=== PATIENT | male | born 1955 | race Caucasian/White ===

== ENCOUNTER → 2018-07-17 | Outpatient (CLI) | payer OTHER ==
[~2018-07-17] MED LIST: Augmentin 875-1 EACH PO; BISA5EC PO; LINZESS290 MCG PO; NAPR500 PO; ROXICODONE5 MG PO; Tylenol325 MG PO; XARELTO15 MG PO
== END | disposition home or self-care (01) ==
LOC: LAB SHORT 12:34 → LAB 12:34
DX: B35.1 Tinea unguium (principal); L60.2 Onychogryphosis
CPT/HCPCS: 88305; 88312

== ENCOUNTER → 2019-06-11 | Outpatient (CLI) | payer OTHER ==
[~2019-06-11] MED LIST changes: +CYCL10 PO; +DIAZ10 PO; +Percocet 10-321 EACH PO; +SIMV10 PO; +TRAZ100 PO; +Zofran4 MG PO
== END | disposition home or self-care (01) ==
LOC: LAB SHORT 11:50 → PLD 11:50
DX: D48.5 Neoplasm of uncertain behavior of skin (principal)
CPT/HCPCS: 88305

== ENCOUNTER 2019-11-14 01:09 | Emergency (ER) | payer OTHER ==
[~2019-11-14] VITALS: Ht 182.9 cm; Wt 97.5 kg
[2019-11-14] MEDS ORDERED: Cymbalta20 MG PO (01:38)
[2019-11-14] MEDS ORDERED: HYDROCODON-ACE1 EAC3 PO (01:39)
[2019-11-14 04:58] LABS: Body Fluid Crystals NEG (NEGATIVE)
[2019-11-14 05:12] LABS: Appearance, Synovial Fluid Bloody (Clear); Color, Synovial Fluid Red (None-P Yel); RBC Count, Synovial Fluid 4350000 /mm3 (0-0); WBC Count, Synovial Fluid 1585 /mm3 (0-180)
[2019-11-14 05:32] LABS: Eos, Synovial Fluid 2 % (0-2); Lymphs, Synovial Fluid 12 % (0-15); Monocytes/Macrophages, Synovia 10 % (0-65); Neutrophils, Synovial Fluid 76 % (0-24)
== END 2019-11-14 04:43 | disposition home or self-care (01) ==
LOC: ER 01:09
PROVIDERS: Emergency Medicine
DX: M25.061 Hemarthrosis, right knee (principal); Z79.01 Long term (current) use of anticoagulants; Z86.711 Personal history of pulmonary embolism; Z86.718 Personal history of other venous thrombosis and embolism; Z87.891 Personal history of nicotine dependence; Z98.890 Other specified postprocedural states
CPT/HCPCS: 20610; 36415; 76882; 87070; 87075; 87205; 89051; 89060; 93971; 96374-59; 96375-59; 96376-59; 99284-25; A9270; J1170; J1885; J2405; J7030

== ENCOUNTER → 2020-06-09 | Outpatient (CLI) | payer OTHER ==
[~2020-06-09] MED LIST changes: +Cymbalta20 MG PO; +HYDROCODON-ACE1 EAC3 PO
== END | disposition home or self-care (01) ==
LOC: LAB SHORT 08:38 → PLD 08:38
DX: D48.5 Neoplasm of uncertain behavior of skin (principal)
CPT/HCPCS: 88305

== ENCOUNTER → 2021-05-25 | Outpatient (CLI) | payer OTHER | END | disposition home or self-care (01) | LOC: LAB SHORT 11:12 → LAB 11:12 | DX: C44.612 Basal cell carcinoma of skin of right upper limb, including shoulder (principal) | CPT/HCPCS: 88305 ==

== ENCOUNTER → 2021-07-01 | Outpatient (CLI) | payer OTHER | END | disposition home or self-care (01) | LOC: LAB SHORT 08:04 | DX: C44.612 Basal cell carcinoma of skin of right upper limb, including shoulder (principal) | CPT/HCPCS: 88305 ==

== ENCOUNTER 2022-05-18 06:16 | Day surgery (SDC) | payer OTHER ==
[~2022-05-18] VITALS: Ht 180.3 cm; Wt 102.2 kg
[~2022-05-18 06:16] MED LIST changes: +CELE200 PO; +PREG100
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
--- NOTE | 2022-05-18 09:10 | NUR ---
0835 PATIENT FEELS TOUCH TO RIGHT THUMB AND INDEX FINGER, BUT NOT MIDDLE, FOUTH OR PINKY FINGER. CAP REFILL LESS THAN 3 SECONDS TO FINGERS X5 TO RIGHT HAND, WARM AND PINK. AYSHA WRAP DRSSING INTACT. ELEVATED ON PILLOW FOR COMFORT. VSS. DENIES PAIN TO SURGERY SITE, BUT C/O HEADACHE. DENIES NAUSEA. TOLERATING SIPS OF WATER. NO OTHER C/O. Discharge instructions reviewed with patient. Patient verbalizes understanding. Copy given to patient to take home. Patient identifies his as tranportation home. at bedside. Patient encouraged to call Dr. Kelly' office when home, to confirm follow-up appointment. Prescription given to patient to fill.
--- NOTE | 2022-05-18 09:14 | NUR ---
0900- NO CHANGE TO RIGHT HAND SURGERY SITE. PATIENT STATES HEADACHE DOWN TO 5/10 PAIN AND STATES HE IS TOLERATING. CONTINUES TO DENY PAIN TO SURGERY SITE.
== END 2022-05-18 09:06 | disposition home or self-care (01) ==
LOC: ORSCMMR 06:16
PROVIDERS: Orthopaedic Surgery
PROC: 0LN70ZZ Release Right Hand Tendon, Open Approach (ICD-10-PCS; principal; 2022-05-18 07:30)
DX: M65.341 Trigger finger, right ring finger (principal); K21.9 Gastro-esophageal reflux disease without esophagitis; E03.9 Hypothyroidism, unspecified; Z79.899 Other long term (current) drug therapy
CPT/HCPCS: J0690; J2250; J2704; J3010; J7120

== ENCOUNTER 2022-08-10 10:50 | Emergency (ER) | payer OTHER ==
[~2022-08-10] VITALS: Ht 182.9 cm; Wt 101.6 kg
== END 2022-08-10 13:00 | disposition home or self-care (01) ==
LOC: ER 10:50
DX: J93.83 Other pneumothorax (principal); Z86.718 Personal history of other venous thrombosis and embolism; Z86.711 Personal history of pulmonary embolism; Z79.01 Long term (current) use of anticoagulants; Z79.899 Other long term (current) drug therapy
CPT/HCPCS: 93005; 93010; 99284-25

== ENCOUNTER → 2022-08-10 | Outpatient (CLI) | payer OTHER ==
[2022-08-10 08:13] LABS: BASOPHILS ABSOLUTE AUTO 0.03 K/mm3 (0.00-0.23); BASOPHILS PERCENT AUTO 0 % (0-2); EOSINOPHILS ABSOLUTE AUTO 0.21 K/mm3 (0.00-0.68); EOSINOPHILS PERCENT AUTO 3 % (0-6); Hemoglobin 18.1 g/dL (13.5-17.5); IMMATURE GRAN ABSOLUTE AUTO 0.01 K/mm3 (0.00-0.10); IMMATURE GRAN PERCENT AUTO 0 % (0-1); LYMPHOCYTES PERCENT AUTO 28 % (21-46); MONOCYTES PERCENT AUTO 10 % (4-13); Mean Corpuscular HGB 28.5 pg (26.0-34.0); Mean Corpuscular HGB Conc 33.5 g/dL (31.5-36.5); Mean Corpuscular Volume 85 fL (80-100); Mean Platelet Volume 10.2 fL (9.1-12.4); NEUTROPHILS ABSOLUTE AUTO 3.88 K/mm3 (1.96-9.15); NEUTROPHILS PERCENT AUTO 58 % (41-73); Platelet Count 208 K/mm3 (150-400); RDW Coefficient Variation 14.3 % (11.7-14.2); RDW Standard Deviation 43.4 fL (35.1-46.3); Red Blood Cell Count 6.34 M/mm3 (4.30-5.90); White Blood Cell Count 6.73 K/mm3 (4.00-11.30)
[2022-08-10 08:26] LABS: Albumin, Blood 4.3 g/dL (3.4-5.0); Albumin/Globulin Ratio 1.2 (0.8-1.8); Bilirubin, Total 0.6 mg/dL (0.1-1.0); Bun/Creatinine Ratio 31.9 (12.0-20.0); Calcium, Blood 9.2 mg/dL (8.5-10.1); Creatinine, Blood 0.69 mg/dL (0.60-1.20); Globulin, Blood 3.6 g/dL (2.2-4.0); Potassium, Blood 4.1 mmol/L (3.5-5.5); Total Protein, Blood 7.9 g/dL (6.4-8.2)
== END | disposition home or self-care (01) ==
LOC: LAB SHORT 08:09 → LAB 08:09
PROVIDERS: Physician Assistant
DX: R07.9 Chest pain, unspecified (principal)
CPT/HCPCS: 80053; 84484; 85025; 85379

== ENCOUNTER → 2022-10-11 | Outpatient (CLI) | payer OTHER ==
[2022-10-11 12:13] LABS: BASOPHILS ABSOLUTE AUTO 0.03 K/mm3 (0.00-0.23); BASOPHILS PERCENT AUTO 1 % (0-2); EOSINOPHILS PERCENT AUTO 2 % (0-6); Hematocrit 52.4 % (37.0-53.0); Hemoglobin 17.7 g/dL (13.5-17.5); IMMATURE GRAN ABSOLUTE AUTO 0.01 K/mm3 (0.00-0.10); IMMATURE GRAN PERCENT AUTO 0 % (0-1); LYMPHOCYTES ABSOLUTE AUTO 1.65 K/mm3 (0.84-5.20); LYMPHOCYTES PERCENT AUTO 30 % (21-46); MONOCYTES ABSOLUTE AUTO 0.47 K/mm3 (0.16-1.47); MONOCYTES PERCENT AUTO 9 % (4-13); Mean Corpuscular HGB 28.5 pg (26.0-34.0); Mean Corpuscular HGB Conc 33.8 g/dL (31.5-36.5); Mean Corpuscular Volume 84 fL (80-100); Mean Platelet Volume 10.6 fL (9.1-12.4); NEUTROPHILS ABSOLUTE AUTO 3.17 K/mm3 (1.96-9.15); NEUTROPHILS PERCENT AUTO 58 % (41-73); Platelet Count 208 K/mm3 (150-400); RDW Coefficient Variation 14.9 % (11.7-14.2); RDW Standard Deviation 43.6 fL (35.1-46.3); Red Blood Cell Count 6.22 M/mm3 (4.30-5.90); White Blood Cell Count 5.43 K/mm3 (4.00-11.30)
== END | disposition home or self-care (01) ==
LOC: LAB SHORT 12:10 → LAB 12:10
PROVIDERS: Family Medicine
DX: D75.0 Familial erythrocytosis (principal)
CPT/HCPCS: 85025

== ENCOUNTER → 2025-07-03 | Outpatient (CLI) | payer MEDICARE, OTHER ==
[~2025-07-03] MED LIST changes: +FAMO10; +FINA5 PO; +OMEP20ER PO; +TAMSULOSIN HCL0.4 M1 PO; +TRAZ50 PO
== END | disposition home or self-care (01) ==
LOC: LAB SHORT 16:01 → LAB 16:01
DX: L08.0 Pyoderma (principal)
CPT/HCPCS: 87070; 87077; 87186; 87205

== ENCOUNTER 2025-09-13 13:52 | Emergency (ER) | payer OTHER, MEDICARE ==
[~2025-09-13] VITALS: Ht 182.9 cm; Wt 83.9 kg
[2025-09-13] MEDS ORDERED: Ondansetron HCl 2 MG / ML 2ML Vial ONE (14:07)
[2025-09-13] MEDS ORDERED: Ondansetron HCl 2 MG / ML 2ML Vial IV ONE (14:10)
[2025-09-13] MEDS ORDERED: Morphine Sulfate 4 MG/1 ML Injection IV ONE (14:10)
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
[2025-09-13 14:25] LABS: Hematocrit 36.6 % (37.0-53.0); Hemoglobin 12.4 g/dL (13.5-17.5); Mean Corpuscular HGB Conc 33.9 g/dL (31.5-36.5); Mean Corpuscular Volume 97 fL (80-100); NRBC ABSOLUTE 0.00 K/mm3 (0.00-0.02); NRBC Auto 0.0 /100 WBC (0.0-0.2); Platelet Count 249 K/mm3 (150-400); RDW Coefficient Variation 14.8 % (11.7-14.2); RDW Standard Deviation 53.3 fL (35.1-46.3)
[2025-09-13] MEDS ORDERED: HYDROmorphone HCl/Pf 1MG SYR IV ONE ×3 (14:30→21:55)
[2025-09-13 14:34] LABS: Prothrombin Time Results 12.1 Sec (9.7-11.5)
[2025-09-13 14:45] VITALS: BP 153/78
[2025-09-13] MEDS ORDERED: FentaNYL Citrate 50 MCG/ML 2 ML Injection IV ONE ×3 (14:50→22:35)
[2025-09-13 14:54] LABS: BASOPHILS ABSOLUTE MAN 0.00 K/mm3 (0.00-0.23); BASOPHILS PERCENT MAN 0 % (0-2); EOSINOPHILS ABSOLUTE MAN 0.17 K/mm3 (0.00-0.68); EOSINOPHILS PERCENT MAN 2 % (0-6); LYMPHOCYTES ABSOLUTE MAN 5.98 K/mm3 (0.84-5.20); LYMPHOCYTES PERCENT MAN 70 % (21-46); MONOCYTES ABSOLUTE MAN 0.68 K/mm3 (0.16-1.47); MONOCYTES PERCENT MAN 8 % (4-13); NEUTROPHILS ABSOLUTE MAN 1.71 K/mm3 (1.96-9.15); SEG NEUTROPHILS PERCENT MAN 20 % (41-73)
[2025-09-13 15:13] LABS: Alanine Aminotransfer (ALT/SGP 29 U/L (12-78); Albumin, Blood 4.1 g/dL (3.4-5.0); Albumin/Globulin Ratio 1.3 (0.8-1.8); Anion Gap 7 mmol/L (3-11); Aspartate Aminotrans (AST/SGOT 29 U/L (12-37); Bilirubin, Total 0.4 mg/dL (0.1-1.0); Blood Urea Nitrogen 19 mg/dL (8-24); CO2, Blood 26 mmol/L (21-32); Calcium, Blood 8.9 mg/dL (8.5-10.1); Chloride, Blood 105 mmol/L (98-108); Creatinine, Blood 0.59 mg/dL (0.60-1.20); Ethanol (Alcohol), Blood, Med <3 mg/dL; Globulin, Blood 3.1 g/dL (2.2-4.0); Glucose, Blood 114 mg/dL (70-99); Potassium, Blood 3.8 mmol/L (3.5-5.5); Sodium, Blood 134 mmol/L (136-145); Total Protein, Blood 7.2 g/dL (6.4-8.2)
[2025-09-13 16:52] LABS: U Amphetamine Screen Not Detected; U Barbiturate Screen Not Detected; U Benzodiazapine Screen Not Detected; U Buprenorphine Screen Not Detected; U Cannabinoids Screen Not Detected; U Cocaine Screen Not Detected; U Methadone Screen Not Detected; U Methamphetamine Screen Not Detected; U Opiates Screen DETECTED; U Oxycodone Screen Not Detected; U Phencyclidine Screen Not Detected
[2025-09-13] MEDS ORDERED: Lidocaine 4% 1 Patch TOP ONE (16:55)
[2025-09-13] MEDS ORDERED: Ketorolac Tromethamine 30mg Vial IV ONE (16:55)
[2025-09-13] MEDS ORDERED: LORazepam 2 MG/ML 1ML Injection IV ONE ×2 (17:00→19:20)
[2025-09-13] MEDS ORDERED: RX Prepack 6 Tabs Oxycodone 5mg UD ONE (20:15)
[2025-09-13] MEDS ORDERED: Ketorolac Tromethamine 15mg Vial IV ONE (20:20)
[2025-09-14] MEDS ORDERED: FentaNYL Citrate 50 MCG/ML 2 ML Injection ONE (00:21)
[2025-09-14] MEDS ORDERED: Diazepam 5 MG / ML 2ML SYR IV ONE (00:45)
[2025-09-14] MEDS ORDERED: RX Prepack 6 Tabs Oxycodone 5mg UD ONE (00:50)
[2025-09-14] MEDS ORDERED: FentaNYL Citrate 50 MCG/ML 2 ML Injection IV PRN (23:55)
== END 2025-09-14 01:15 | disposition left against medical advice (07) ==
LOC: ER 13:52
PROVIDERS: Student in an Organized Health Care Education/Training Program
DX: S22.049A Unspecified fracture of fourth thoracic vertebra, initial encounter for closed fracture (principal); S22.039A Unspecified fracture of third thoracic vertebra, initial encounter for closed fracture; V89.2XXA Person injured in unspecified motor-vehicle accident, traffic, initial encounter; Z87.891 Personal history of nicotine dependence; Z79.899 Other long term (current) drug therapy
CPT/HCPCS: 51702; 70450; 71045; 71260; 72020; 72125; 74177; 80053; 80320; 83690; 85025; 85610; 86850; 86900; 86901; 93005; 93010; 96374; 96375; 96376; 99285-25; A9270; J1171; J1885; J2060; J2270; J2405; J3010; Q9967